=== PATIENT | male | born 1970 | race Asian ===

== ENCOUNTER 2020-04-18 14:38 | Emergency (ER) | payer SELFPAY ==
[2020-04-18 14:49] VITALS: BP 143/85
[2020-04-18] MEDS ORDERED: ACETAMINOPHEN 325 MG TAB PO ONE (15:17)
--- NOTE | 2020-04-18 15:43 | Emergency Department Report ---
ED Head Trauma HPI - General Chief complaint: Head Injury Stated complaint: HEAD INJURY Time Seen by Provider: 04/18/20 15:09 Source: patient, family Mode of arrival: Ambulatory Limitations: No Limitations - History of Present Illness Initial comments: Patient is a 51-year-old male who presents emergency room after an head injury that occurred just prior to arrival. Patient states that a 3 pound cordless drill fell from 2 feet above him and hit him in the head. He has associated headache. He states that he also has a lump to the left side of his forehead. He states he was experiencing some mild dizziness but that has since improved. He denies any loss of consciousness, vision changes, numbness, weakness, bowel or bladder incontinence, neck pain, any other injury. He states he has a past medical history of a clavicle surgery. He denies any allergies to medications. - Related Data Previous Rx's Medication Instructions Recorded Last Taken Type Acetaminophen [Tylenol] 650 mg PO Q8HR PRN #14 capsule 04/18/20 Unknown Rx Allergies/Adverse reactions: Allergies Allergy/AdvReac Type Severity Reaction Status Date / Time No Known Allergies Allergy Unverified 04/18/20 14:48 ED Review of Systems ROS: Stated complaint: HEAD INJURY Other details as noted in HPI Comment: All other systems reviewed and negative ED Past Medical Hx - Past Medical History Previous Medical History?: No - Surgical History Past Surgical History?: No - Social History Smoking Status: Never Smoker Substance Use Type: None - Medications Home Medications: Home Medications Medication Instructions Recorded Confirmed Last Taken Type Acetaminophen [Tylenol] 650 mg PO Q8HR PRN #14 capsule 04/18/20 Unknown Rx ED Physical Exam - General Limitations: No Limitations General appearance: alert, in no apparent distress - Head Head exam: Present: other (2 cm hematoma present to the left forehead, mild ttp, no deformity, no crepitus, no other facial bone ttp, no abrasion or laceration) - Eye Eye exam: Present: normal appearance, PERRL, EOMI, other (no racoon eyes). Absent: periorbital swelling, periorbital tenderness Pupils: Present: normal accommodation - ENT ENT exam: Present: mucous membranes moist, other (no piña signs) - Neck Neck exam: Present: normal inspection, full ROM. Absent: tenderness - Respiratory Respiratory exam: Absent: respiratory distress, accessory muscle use - Neurological Exam Neurological exam: Present: alert, oriented X3, CN II-XII intact, normal gait. Absent: motor sensory deficit - Psychiatric Psychiatric exam: Present: normal affect, normal mood - Skin Skin exam: Present: warm, dry ED Course Vital Signs 04/18/20 14:45 Temperature 98.3 F Pulse Rate 79 Respiratory 14 Rate Blood Pressure 143/85 O2 Sat by Pulse 97 Oximetry - Radiology Data Radiology results: report reviewed CT head/brain wo con INDICATION / CLINICAL INFORMATION: 49 years Male; MAIN. TECHNIQUE: Routine CT head without contrast. All CT scans at this location are performed using CT dose reduction for ALARA by means of automated exposure control. COMPARISON: None. FINDINGS: BRAIN / INTRACRANIAL CONTENTS: There is suggestion of an arachnoid cyst in the posterior fossa-of no clinical significance. No acute hemorrhage, mass effect, midline shift, hydrocephalus, or acute, large territorial infarct. No chronic infarct or atrophy appreciated. No significant white matter abnormality. CRANIOCERVICAL JUNCTION: No significant abnormality. ORBITS: No significant abnormality of visualized orbits. SINUSES / MASTOIDS: No significant abnormality in the visualized paranasal sinuses or mastoid air cells. ADDITIONAL FINDINGS: Minimal subcutaneous soft tissue swelling seen in the left frontal region. No signs of underlying calvarial fracture. IMPRESSION: 1. No focal mass, hemorrhage, hydrocephalus, or acute, large territorial infarct. Signer Name: Leo Patel MD, III Signed: 04/18/2020 5:04 PM Workstation Name: [id number] Transcribed By: HR Dictated By: Leo Patel MD Electronically Authenticated By: Leo Patel MD Signed Date/Time: 04/18/201703 DD/ 57 TD/TT: - Medical Decision Making Patient is a 51-year-old male who presents emergency room after an head injury that occurred just prior to arrival. Patient states that a 3 pound cordless drill fell from 2 feet above him and hit him in the head. He has associated headache. He states that he also has a lump to the left side of his forehead. He states he was experiencing some mild dizziness but that has since improved. He denies any loss of consciousness, vision changes, numbness, weakness, bowel or bladder incontinence, neck pain, any other injury. He states he has a past medical history of a clavicle surgery. He denies any allergies to medications. vitals are stable. on exam: 2 cm hematoma present to the left forehead, mild ttp, no deformity, no crepitus, no other facial bone ttp, no abrasion or laceration, no focal neuro deficit. CT head: 1. No focal mass, hemorrhage, hydrocephalus, or acute, large territorial infarct. pt given tylenol while in the ED and symptoms improved. pt given his CT report. pt given prescription for tylenol. advised pt Please take medication as prescribed as needed. Follow-up with a primary care doctor. Return to emergency room for any new or worsening symptoms. - Differential Diagnosis minor head injury, concussion, ICH, SDH, epidural hematoma, fracture - NEXUS Criteria Focal neurological deficit present: No Midline spinal tenderness present: No Altered level of consciousness: No Intoxication present: No Distracting injury present: No NEXUS results: C-Spine can be cleared clinically by these results. Imaging is not required. Critical care attestation.: If time is entered above; I have spent that time in minutes in the direct care of this critically ill patient, excluding procedure time. ED Disposition Clinical Impression: Hematoma Minor head injury without loss of consciousness Qualifiers: Encounter type: initial encounter Qualified Code(s): S09.90XA - Unspecified injury of head, initial encounter Disposition: - TO HOME OR SELFCARE Is pt being admited?: No Does the pt Need Aspirin: No Condition: Stable Instructions: Minor Head Injury (ED) Additional Instructions: Please take medication as prescribed as needed. Follow-up with a primary care doctor. Return to emergency room for any new or worsening symptoms. Prescriptions: Acetaminophen [Tylenol] 650 mg PO Q8HR PRN #14 capsule PRN Reason: headache Referrals: your, primary care doctor [Other] - 2-3 Days CHIKA MATAMOROS MD [Staff Physician] - 2-3 Days [facility] [Provider Group] - 2-3 Days Time of Disposition: 17:10 Print Language: CYMRAES
--- NOTE | 2020-04-18 17:09 | Cat Scan Report ---
. CT head/brain wo con INDICATION / CLINICAL INFORMATION: 49 years Male; MAIN. TECHNIQUE: Routine CT head without contrast. All CT scans at this location are performed using CT dos e reduction for ALARA by means of automated exposure control. COMPARISON: None. FINDINGS: BRAIN / INTRACRANIAL CONTENTS: There is suggestion of an arachnoid cyst in the posterior fossa-of no clinical significance. No acute hemorrhage, mass effect, midline shift, hydrocephalus, or acute, larg e territorial infarct. No chronic infarct or atrophy appreciated. No significant white matter abnorma lity. CRANIOCERVICAL JUNCTION: No significant abnormality. ORBITS: No significant abnormality of visualized orbits. SINUSES / MASTOIDS: No significant abnormality in the visualized paranasal sinuses or mastoid air josefina ls. ADDITIONAL FINDINGS: Minimal subcutaneous soft tissue swelling seen in the left frontal region. No si gns of underlying calvarial fracture. IMPRESSION: 1. No focal mass, hemorrhage, hydrocephalus, or acute, large territorial infarct. Signer Name: Leo Patel MD, III Signed: 04/18/2020 5:04 PM Workstation Name: [id number]
== END 2020-04-18 17:17 | disposition home or self-care (01) ==
LOC: ED 14:38
DX: S09.90XA Unspecified injury of head, initial encounter (principal); Z79.899 Other long term (current) drug therapy; X58.XXXA Exposure to other specified factors, initial encounter; Y93.89 Activity, other specified; Y92.89 Other specified places as the place of occurrence of the external cause; Y99.8 Other external cause status
CPT/HCPCS: 70450